=== PATIENT | male | born 1955 | race African-American/Black ===

== ENCOUNTER 2024-01-04 18:36 | Inpatient (IN) | payer OTHER ==
[~2024-01-04] VITALS: Ht 177.8 cm; Wt 111.6 kg
[~2024-01-04 18:36] MED LIST: DEXAMETHASONE SOD PHOS INJ 4 MG/ML SDV ONE; ETOMIDATE 2 MG/ML 10 ML INJ IV ONE; KETOROLAC TROMETHAMINE 30 MG/ML VIAL ONE; LABETALOL HCL 5 MG/ML 20ML VIAL ONE; LIDOCAINE HCL 2% LOCAL INJ 5 ML SDV VIAL INJ ONE; METOCLOPRAMIDE HCL 10 MG/2ML VIAL ONE; ONDANSETRON HCL INJ 2MG/ML 2ML 2 MG/ML VIAL ONE; PROPOFOL IV EMULSION 10 MG/ML 20 ML VIAL ONE; ROCURONIUM BROMIDE 10 MG/ML 5ML VIAL IV ONE; SEVOFLURANE INHAL SOLN 250 ML PEN BTL ONE; SUCCINYLCHOLINE CHLORIDE 20 MG/ML 10ML VIAL ONE
[2024-01-04 18:40] VITALS: TEMP 98.1
[2024-01-04 19:12] LABS: BASOPHILS # (AUTO) 0.1 (0.0-0.1); BASOPHILS % 0.4 % (0.0-1.0); EOSINOPHILS # (AUTO) 0.2 (0.0-0.4); EOSINOPHILS % 1.5 % (0.0-6.0); HEMATOCRIT 45.5 % (38.2-49.6); HEMOGLOBIN 15.4 g/dL (14.0-18.0); LYMPHOCYTES # (AUTO) 2.9 (1.0-3.2); LYMPHOCYTES % 20.5 % (18.0-39.1); MEAN CORPUSCULAR HEMOGLOBIN 30.1 pg (28-32); MEAN CORPUSCULAR HGB CONC 33.8 g/dL (31-35); MONOCYTES % 7.2 % (4.4-11.3); PLATELET COUNT 313 x10e3/uL (140-360); RED BLOOD COUNT 5.11 x10e6/uL (4.3-5.7); RED CELL DISTRIBUTION WIDTH 14.3 % (11.7-14.4); WHITE BLOOD COUNT 14.22 x10e3/uL (4.8-10.8)
[2024-01-04 19:17] LABS: CLARITY,URINE CLEAR (CLEAR); COLOR,URINE YELLOW (YELLOW)
[2024-01-04] MEDS: ONDANSETRON HCL INJ 2MG/ML 2ML 2 MG/ML VIAL IV STA (19:17)
[2024-01-04] MEDS: Morphine 4mg INJECTION 4 MG/ML INJ IV ONE (19:17)
[2024-01-04 19:18] LABS: BILIRUBIN,URINE NEGATIVE (NEGATIVE); GLUCOSE, URINE NEGATIVE (NEGATIVE); KETONES,URINE NEGATIVE (NEGATIVE); LEUKOCYTE ESTERASE ,URINE NEGATIVE (NEGATIVE); NITRITE,URINE NEGATIVE (NEGATIVE); PH,URINE 5.5 (5 - 7); PROTEIN,URINE DIPSTICK NEGATIVE (NEGATIVE); URINE UROBILINOGEN 0.2 mg/dL (0.2 - 1)
[2024-01-04 19:21] LABS: BACTERIA,URINE FEW /HPF; EPITHELIAL CELLS,URINE FEW /LPF; MUCUS,URINE MODERATE (RARE); WBC,URINE (MAN) 0-5 /HPF (0-5)
[2024-01-04 19:32] LABS: ALBUMIN 4.6 g/dL (3.5-5.0); ALBUMIN/GLOBULIN RATIO 1.2 (0.8-2.0); ANION GAP 15.1 mmol/L (8-16); BILIRUBIN,TOTAL 1.2 mg/dL (0.2-1.2); CALCIUM 9.5 mg/dL (8.4-10.2); CREATININE, SERUM 0.83 mg/dL (0.72-1.25); POTASSIUM 4.1 mmol/L (3.5-5.1); TOTAL PROTEIN 8.3 g/dL (6.5-8.1)
[2024-01-04] MEDS ORDERED: IOPAMIDOL 370 MG/ML 100 ML INFUS..BTL INJ ONE (19:58)
[2024-01-04 20:00] VITALS: BP 159/100; PULSE 78; RESP 18; TEMP 98.4; O2SAT 99
[2024-01-04] MEDS: KETOROLAC TROMETHAMINE 30 MG/ML VIAL IV STA (21:59)
[2024-01-04] MEDS ORDERED: DEXTROSE 50% SYRINGE 50 ML IV PRN (22:00)
[2024-01-04] MEDS: SODIUM CHLORIDE 0.9% 1000ML 1,000 ML IV SCH (22:08)
[2024-01-04 22:13] VITALS: PULSE 71; RESP 16
[2024-01-04] MEDS: Morphine 4mg INJECTION 4 MG/ML INJ IV PRN (23:26)
[2024-01-04] MEDS: ONDANSETRON HCL INJ 2MG/ML 2ML 2 MG/ML VIAL IV PRN (23:26)
[2024-01-04 23:50] VITALS: BP_SYST 159; BP_SYST 161; BP_DIAS 100; BP_DIAS 93; PULSE 78; RESP 18; TEMP 98.4; O2SAT 96
[2024-01-05] VITALS (12 sets, daily range): BP systolic 130–165; BP diastolic 63–100; PULSE 72–92; RESP 18; TEMP 97.5–99; O2SAT 92–99
[2024-01-05] MEDS: INSULIN REGULAR, HUMAN 100 UNIT/1 ML SQ SCH (07:30)
[2024-01-05] MEDS ORDERED: VITAMIN D31 GM (07:36)
[2024-01-05] MEDS ORDERED: COREG12.5 MG PO (07:36)
[2024-01-05] MEDS ORDERED: ASPIRIN81 MG PO (07:36)
[2024-01-05] MEDS ORDERED: AMLODIPINE BESY10 MG PO (07:36)
[2024-01-05] MEDS ORDERED: VITAMIN D3125 MCG PO (07:36)
[2024-01-05] MEDS ORDERED: ATORVASTATIN CA20 MG PO (07:36)
[2024-01-05] MEDS ORDERED: PIOGLITAZONE HC45 MG PO (07:36)
[2024-01-05] MEDS ORDERED: METFORMIN HCL500 MG PO (07:36)
[2024-01-05] MEDS ORDERED: LOSARTAN POTASS25 MG PO (07:40)
[2024-01-05 07:42] LABS: BASOPHILS % 0.2 % (0.0-1.0); EOSINOPHILS % 0.1 % (0.0-6.0); HEMATOCRIT 41.8 % (38.2-49.6); HEMOGLOBIN 13.8 g/dL (14.0-18.0); LYMPHOCYTES # (AUTO) 1.7 (1.0-3.2); LYMPHOCYTES % 12.2 % (18.0-39.1); MEAN CORPUSCULAR HEMOGLOBIN 29.8 pg (28-32); MEAN CORPUSCULAR VOLUME 90.3 fL (81-99); MONOCYTES # (AUTO) 1.2 (0.2-0.8); MONOCYTES % 8.7 % (4.4-11.3); NEUTROPHILS % 78.4 % (38.7-80.0); PLATELET COUNT 282 x10e3/uL (140-360); RED BLOOD COUNT 4.63 x10e6/uL (4.3-5.7); RED CELL DISTRIBUTION WIDTH 14.6 % (11.7-14.4); WHITE BLOOD COUNT 13.95 x10e3/uL (4.8-10.8)
[2024-01-05] MEDS ORDERED: LEVOTHYROXINE50 MCG PO (07:42)
[2024-01-05] MEDS ORDERED: GLIMEPIRIDE2 MG PO (07:44)
[2024-01-05 08:07] LABS: ALBUMIN 4.1 g/dL (3.5-5.0); ALBUMIN/GLOBULIN RATIO 1.3 (0.8-2.0); ANION GAP 13.2 mmol/L (8-16); BILIRUBIN,TOTAL 1.6 mg/dL (0.2-1.2); CALCIUM 8.9 mg/dL (8.4-10.2); CREATININE, SERUM 0.89 mg/dL (0.72-1.25); POTASSIUM 4.2 mmol/L (3.5-5.1); TOTAL PROTEIN 7.3 g/dL (6.5-8.1)
[2024-01-05] MEDS ORDERED: BUPIVACAINE HCL 0.5% INJ 30 ML VIAL INJ ONE (08:08)
[2024-01-05] MEDS ORDERED: SUGAMMADEX SODIUM 200 MG/2 ML VIAL IV ONE (08:53)
[2024-01-05] MEDS ORDERED: DEXTROSE 50% SYRINGE 50 ML IV PRN (09:00)
[2024-01-05] MEDS ORDERED: ACETAMINOPHEN 325 MG TAB PO PRN ×2 (09:00→11:30)
[2024-01-05] MEDS: SODIUM CHLORIDE 0.9% 1000ML 1,000 ML IV SCH (09:49)
[2024-01-05] MEDS ORDERED: Morphine 10mg syringe 10 MG/ML INJ ONE (11:44)
[2024-01-05] MEDS ORDERED: FENTANYL CITRATE/PF 100MCG/2 ML INJ ONE (11:44)
[2024-01-05] MEDS: INSULIN LISPRO 100 UNIT/1 ML 3ML VIAL SQ SCH (12:15)
[2024-01-05] MEDS: LOSARTAN POTASSIUM 25 MG TAB PO SCH (12:16)
[2024-01-05] MEDS: CARVEDILOL 12.5 MG TAB PO SCH (12:17)
[2024-01-05] MEDS: GLIMEPIRIDE 2 MG TAB PO SCH (17:03)
[2024-01-05] MEDS: HYDROCODONE/APAP 5MG-325MG TAB PO PRN (17:11)
[2024-01-06] VITALS (10 sets, daily range): BP systolic 105–136; BP diastolic 48–72; PULSE 73–91; RESP 18–20; TEMP 99–101.1; O2SAT 62–98
[2024-01-06 05:08] LABS: BASOPHILS % 0.4 % (0.0-1.0); EOSINOPHILS % 0.3 % (0.0-6.0); HEMATOCRIT 39.7 % (38.2-49.6); HEMOGLOBIN 12.9 g/dL (14.0-18.0); LYMPHOCYTES # (AUTO) 1.6 (1.0-3.2); LYMPHOCYTES % 16.6 % (18.0-39.1); MEAN CORPUSCULAR HEMOGLOBIN 29.8 pg (28-32); MEAN CORPUSCULAR HGB CONC 32.5 g/dL (31-35); MEAN CORPUSCULAR VOLUME 91.7 fL (81-99); MONOCYTES # (AUTO) 0.6 (0.2-0.8); NEUTROPHILS # (AUTO) 7.3 (2.1-6.9); NEUTROPHILS % 76.4 % (38.7-80.0); PLATELET COUNT 241 x10e3/uL (140-360); RED BLOOD COUNT 4.33 x10e6/uL (4.3-5.7); RED CELL DISTRIBUTION WIDTH 14.3 % (11.7-14.4)
[2024-01-06 05:27] LABS: ANION GAP 12.1 mmol/L (8-16); CALCIUM 8.6 mg/dL (8.4-10.2); CREATININE, SERUM 1.04 mg/dL (0.72-1.25); POTASSIUM 4.1 mmol/L (3.5-5.1)
[2024-01-06] MEDS: ONDANSETRON HCL INJ 2MG/ML 2ML 2 MG/ML VIAL IV PRN (06:34)
[2024-01-06] MEDS: LEVOTHYROXINE SODIUM 50 MCG TAB PO SCH (06:39)
[2024-01-06] MEDS: ATORVASTATIN 20 MG TAB PO SCH (08:42)
[2024-01-06] MEDS: TRAMADOL HCL 50 MG TAB PO PRN (12:01)
[2024-01-06] MEDS: Morphine 2mg Syringe 2 MG/ML SYR IV PRN (14:01)
[2024-01-07 00:12] VITALS: BP 106/50; PULSE 78; RESP 18; TEMP 99.6; O2SAT 100
[2024-01-07 06:07] VITALS: BP 124/61; PULSE 80; RESP 18; TEMP 98.9; O2SAT 93
[2024-01-07 07:35] VITALS: PULSE 82; RESP 18; O2SAT 97
[2024-01-07 08:50] VITALS: BP 138/75; PULSE 78; RESP 20; TEMP 98.5; O2SAT 95
[2024-01-07 09:35] VITALS: BP 75/75; PULSE 138; RESP 20; TEMP 98.5; O2SAT 95
[2024-01-07] MEDS ORDERED: AUGMENTIN 500-1 EACH PO (11:21)
[2024-01-07] MEDS ORDERED: HYDROCODON-ACE1 EA11 PO (11:27)
[2024-01-07 12:15] VITALS: BP 131/71; PULSE 79; RESP 20; TEMP 99.3; O2SAT 95
== END 2024-01-07 14:21 | disposition home or self-care (01) | DRG 399 ==
LOC: ER 18:42 → ERHOLD 21:47 → MED/SURG 22:58
PROVIDERS: ADMIT Internal Medicine; ATTEND Internal Medicine
PROC: 0DTJ4ZZ Resection of Appendix, Percutaneous Endoscopic Approach (ICD-10-PCS; principal; 2024-01-05 08:18)
DX: K35.80 Unspecified acute appendicitis (principal); E11.9 Type 2 diabetes mellitus without complications; I11.0 Hypertensive heart disease with heart failure; I50.9 Heart failure, unspecified; E78.00 Pure hypercholesterolemia, unspecified; E03.9 Hypothyroidism, unspecified; M54.9 Dorsalgia, unspecified; F17.210 Nicotine dependence, cigarettes, uncomplicated
CPT/HCPCS: 0223U; 36415; 74177; 80048; 80053; 81001; 82948; 85025; 88304; 94799; 99284; J0330; J1100; J1885; J2001; J2270; J2405; J2543; J2765; J7030; Q9967